=== PATIENT | male | born 1960 | race Caucasian/White ===

== ENCOUNTER 2017-06-10 07:56 | Day surgery (SDC) | payer BC ==
--- NOTE | 2017-06-09 13:38 | Pre-Procedure Note/Attestation ---
Pre-Procedure Note/Attestation Complete Prior to Procedure Planned Procedure: right Procedure Narrative: rt knee acl reconstruction, medial meniscectomy and chondroplasty Indications for Procedure Pre-Operative Diagnosis: rt knee acl tear, medial meniscus tear Attestation I attest that I discussed the nature of the procedure; its benefits; risks and complications; and alternatives (and the risks and benefits of such alternatives ), prior to the procedure, with the patient (or the patient's legal player services representative). I attest that, if there was a reasonable possibility of needing a blood transfusion, the patient (or the patient's legal player services representative) was given the [facility] standardized written summary, pursuant to the [place] Blood Safety Act ([place] Health and Safety Code # 1645, as amended). I attest that I re-evaluated the patient just prior to the surgery and that there has been no change in the patient's H&P, except as documented below: NONE NOLA ARCINIEGA Jun 09, 2017 13:38
[2017-06-10] VITALS (10 sets, daily range): BP systolic 90–136; BP diastolic 45–96
[~2017-06-10] VITALS: Ht 182.9 cm; Wt 79.4 kg
[~2017-06-10 07:56] MED LIST: Bupivacaine w/Epi 0.5% 30ml Vial INJ ONE; D5 1/2NS 1,000 ML IV SCH; HYDROmorphone 1mg/ml Carpuject SUBQ PRN; Lidocaine 1% Plain 30 ml INJ ONE; Norco 5mg/325mg tab ORAL PRN; Tylenol #3 tab (300mg/30mg) ORAL PRN; ceFAZolin 1gm in D5W 55ml IVP ONE; celeBREX 200mg Cap **SURGERY PATIENTS ONLY ORAL ONE; oxyCONTIN 20mg tab ORAL ONE
[2017-06-10] MEDS ORDERED: Ropivacaine 5mg/ml Vial 20ml INJ ONE (08:05)
[2017-06-10] MEDS ORDERED: IRBESARTAN PO (08:13)
[2017-06-10] MEDS ORDERED: ASPIR 8181 MG ORAL (08:13)
[2017-06-10] MEDS ORDERED: EPINEPHrine 1mg/1ml Amp ONE (08:25)
[2017-06-10] MEDS ORDERED: Midazolam 2mg/2ml Inj ONE (08:30)
[2017-06-10] MEDS ORDERED: NS Irrig 1000ml ONE (08:30)
[2017-06-10] MEDS ORDERED: Dexamethasone 4mg/ml vial ONE (08:30)
[2017-06-10] MEDS ORDERED: NS Irrig 4000ml IRRIG ONE (08:30)
[2017-06-10] MEDS ORDERED: Propofol 10mg/ml 20ml IV ONE (08:30)
[2017-06-10] MEDS ORDERED: fentaNYL 100 mcg/2 mL IV ONE (08:30)
[2017-06-10] MEDS ORDERED: Sterile Water Irrig 1000ml IRRIG ONE (08:30)
[2017-06-10] MEDS ORDERED: LR 1000ml ONE (08:30)
[2017-06-10] MEDS ORDERED: Lidocaine 1% MPF 10mg/ml 5ml ONE (08:30)
[2017-06-10] MEDS ORDERED: LR 1000ml 1,000 ML IVLG SCH (09:18)
--- NOTE | 2017-06-10 09:18 | Anethesia Preoperative Eval ---
Anesthesia Pre-op PMH/ROS General Date of Evaluation: Jun 10, 2017 Time of Evaluation: 08:31 Anesthesiologist: Atilio ASA Score: ASA 3 Mallampati Score Class I : Soft palate, uvula, fauces, pillars visible Class II: Soft palate, uvula, fauces visible Class III: Soft palate, base of uvula visible Class IV: Only hard plate visible Mallampati Classification: Class II Surgeon: Araceli Diagnosis: R Leg Pain Surgical Procedure: R ACL Repair Anesthesia History: none Family History: no anesthesia problems Allergies: Coded Allergies: No Known Allergies (Unverified , 06/05/17) Medications: see eMAR Past Medical History Cardiovascular: Reports: HTN Pulmonary: Reports: other - Bronchitis Hematology/Immune: Reports: other - HIV, Skin CA PSxH Narrative: R Knee Sx 84 Anesthesia Pre-op Phys. Exam Physician Exam Last Vital Signs Date Time Temp Pulse Resp B/P (MAP) Pulse Ox O2 Delivery O2 Flow Rate FiO2 06/10/17 08:27 97.8 70 18 131/96 99 Room Air Constitutional: NAD Neurologic: CN 2-12 intact Cardiovascular: RRR Respiratory: CTA Gastrointestinal: S/NT/ND Airway Exam Mallampati Score: Class II MO: full ROM: full Teeth: intact Anesthesia Pre-op A/P Risk Assessment & Plan Assessment: ASA 3 Plan: GA, R Femoral/Adductor Block, BIS Status Change Before Surgery: No Pre-Antibiotics Dru Grams Ancef IV Given Within 1 Hr of Incision: Yes Time Given: 08:46 Alexis Trimble MD Jun 10, 2017 09:18
[2017-06-10] MEDS ORDERED: Midazolam 2mg/2ml Inj IVP PRN (09:30)
[2017-06-10] MEDS ORDERED: Meperidine 25mg/0.5ml Inj (FOR RIGORS ONLY) IV PRN (09:30)
[2017-06-10] MEDS ORDERED: Ketorolac 60mg Inj IV PRN (09:30)
[2017-06-10] MEDS ORDERED: DiphenhydrAMINE 50mg/ml Inj IVP PRN (09:30)
[2017-06-10] MEDS ORDERED: Hydromorphone 0.5mg/0.5ml inj IVP PRN (09:30)
[2017-06-10] MEDS ORDERED: LORazepam Inj 2mg/ml 1ml IV PRN (09:30)
[2017-06-10] MEDS ORDERED: Atropine Inj 1mg/10ml Syr IV PRN (09:30)
[2017-06-10] MEDS ORDERED: Ketorolac 30mg Inj IV PRN (09:30)
[2017-06-10] MEDS ORDERED: Norco 5mg/325mg tab ORAL PRN (09:30)
[2017-06-10] MEDS ORDERED: Metoclopramide 10mg/2ml Inj IVP PRN (09:30)
[2017-06-10] MEDS ORDERED: fentaNYL 100 mcg/2 mL IV PRN (09:30)
[2017-06-10] MEDS ORDERED: oxyCODONE HCL/Acetaminophen 5/325mg ORAL PRN (09:30)
[2017-06-10] MEDS ORDERED: Norco 7.5mg/325mg tab ORAL PRN (09:30)
--- NOTE | 2017-06-10 09:30 | Immediate Post-Op Evaluation ---
Immediate Post-Op Evalulation Immediate Post-Op Evalulation Procedure: R ACL Repair Date of Evaluation: Jun 10, 2017 Time of Evaluation: 10:49 IV Fluids: 1000 LR Blood Products: 0 Estimated Blood Loss: 25 Urinary Output: 0 Blood Pressure Systolic: 90 Blood Pressure Diastolic: 49 Pulse Rate: 76 Respiratory Rate: 16 O2 Sat by Pulse Oximetry: 98 Temperature (Fahrenheit): 97.2 Pain Score (1-10): 3 Nausea: No Vomiting: No Complications 0 Patient Status: awake, reacts, patent, extubated, none Hydration Status: adequate Dru Grams Ancef IV Given Within 1 Hr of Incision: Yes Time Given: 08:46 Alexis Trimble MD Jun 10, 2017 09:30
--- NOTE | 2017-06-10 09:31 | 48 Hour Post Anesthesia Eval ---
Post Anesthesia Evaluation Procedure: R ACL Repair Date of Evaluation: Jun 10, 2017 Time of Evaluation: 10:49 Blood Pressure Systolic: 112 0: 78 Pulse Rate: 74 Respiratory Rate: 18 Temperature (Fahrenheit): 98.2 O2 Sat by Pulse Oximetry: 97 Airway: patent Nausea: No Vomiting: No Pain Intensity: 3 Hydration Status: adequate Cardiopulmonary Status: Stable Mental Status/LOC: patient returned to baseline Follow-up Care/Observations: 0 Post-Anesthesia Complications: 0 Follow-up care needed: ready to discharge Alexis Trimble MD Jun 10, 2017 09:31
--- NOTE | 2017-06-10 10:34 | Brief Operative Note ---
Immediate Post Operative Note Operative Note Chief Complaint: rt knee instability Pre-op Diagnosis: rt knee acl tear, medial and lateral meniscus tear Procedure: rt knee scope, scope, acl reconstruction, medial and lateral meniscectomy Post-op Diagnosis: same as pre-op Findings: consistent w/pre-op dx studies Surgeon: md deisy Manager Cafe: erickson swain Anesthesiologist: md linda Anesthesia: general Specimen: none Complications: none Condition: stable Fluids: NS Estimated Blood Loss: minimal Drains: none Implant(s) used?: Yes - biomet BRANDI SWAIN Jun 10, 2017 10:34
--- NOTE | 2017-06-10 23:00 | Operative Note - Dictated ---
DATE OF OPERATION: 06/10/2017 PREOPERATIVE DIAGNOSES: 1. Right knee posterior horn medial meniscus tear. 2. Right knee complete tear of the anterior cruciate ligament status post previous anterior cruciate ligament reconstruction. POSTOPERATIVE DIAGNOSES: 1. Right knee large posterior horn medical meniscus tearing in a non-repairable zone involving the posterior horn and body of the medial meniscus involving 40% of the posterior horn body of the medial meniscus. 2. Right knee posterior horn lateral meniscus tearing involving 20% of the posterior horn of the lateral meniscus. 3. Right knee complete torn previous anterior cruciate ligament graft. 4. 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 PROCEDURE: 1. Right knee arthroscopy and extensive intra-articular shaving. 2. Right knee partial lateral meniscectomy involving 20% lateral meniscus. 3. Right knee partial medial meniscectomy involving 40% of the posterior horn and body of the medial meniscus. 4. Right knee arthroscopic ACL reconstruction using tibialis anterior allograft, 10 mm graft, with ToggleLoc femoral fixation and AperFix tibial fixation. SURGEON: aLwrence Charles M.D. BUSINESS SOLUTIONS ANALYST: Anson Mcdonald [employer] Driver was present during the actual operative portion of the case and was important and essential part of the operation. During the operation, the senior executive assistant held and operated the arthroscopic camera for visualization, assisted by manipulating the leg to help with visualization, and helped with essential parts of the repair process as necessary such as operating surgical instruments under surgeon supervision, suture management, and wound closures. ANESTHESIOLOGIST: Alexis Trimble M.D. ANESTHESIA: General LMA anesthesia combined with femoral nerve block for postoperative pain management. TOURNIQUET TIME: 65 minutes. EBL: Minimal. COMPLICATIONS: None. SURGICAL INDICATION: Patient is a 56-year-old male who sustained the above injury to his knee. The patient was treated non-operative initially, but this did not alleviate the patients symptoms. Therefore, after discussing all non-surgical and surgical options, and discussing all foreseeable risk and benefits of surgery, the patient opted for surgical treatment as described above. PATIENT POSITIONING: Patient was brought to the operating room table and placed supine. All pressure points were well padded. General Anesthesia was induced and a well padded tourniquet was placed on the thigh. The lateral post was placed and positioned to allow for opening of the medial compartment of the knee without placing pressure over the fibular head. Patients entire leg was prepped and draped in the usual sterile fashion. Time out was performed and preop abx was given and after exsanguinating the lower extremity, the tourniquet was inflated to 275 mm of mercury. EXAMINATION OF THE KNEE UNDER ANESTHESIA: Before prepping and draping the knee and while the patient was relaxed under general anesthesia, the knee was examined for ROM, and anterior and posterior, medial and lateral, posterolateral, and posteromedial instability. Pivot shift testing was performed. There was no evidence of loss of motion, although there was marked instability on the anterior drawer testing and the pivot shifting. PORTAL PLACEMENT: The lateral portal was placed with the knee flexed to 90 degrees at the level of inferior border of the patella in line with the lateral border of the patella. A cm skin incision was made with an eleven blade, and using a blunt obturator, the capsule was gently penetrated. Sterile saline solution was then infused inside the knee with the aid of a pump set at 35 mm mercury pressure. Under direct visualization, placement of the medial portal was preliminary judged using a spinal needle, and it was subsequently established using the same technique as the lateral portal. Care was given not to injure the cutaneous branches of the medial Saphenous nerve or the subcutaneous veins. DIAGNOSTIC ARTHROSCOPY: The suprapatellar patellar pouch was visualized. There was central trochlear groove damage with grade 3 and grade 4 chondromalacia in the central groove. The patella was intact. The medial plica shelf and the corresponding medial femoral condyle articular cartilage were visualized. There was no significantly thickening of the medial plica shelf and there were no kissing ? lesion over the medial femoral condyle. The lateral gutter and the posterolateral corner of the knee were visualized. There were no loose bodies, and the popliteus tendon and other structures of the posterolateral corner of the knee were intact intra-articularly. At this point, the knee was placed in the figure of four position and the lateral compartment was entered. The lateral femoral condyle, lateral tibial plateau, and the anterior, body, and the posterior horn of the lateral meniscus were visualized and probed. The articular surfaces were intact and devoid of articular cartilage damage. There was a posterior horn lateral meniscus tear involving 20% lateral meniscus. This was near the meniscus root, although the meniscus root was intact. The knee was then placed at 90 degree and the ACL and PCL were visualized and probed. There was complete tear of the ACL graft that was placed in the past. This was completely torn. The PCL was completely intact on visualization and probing and it had excellent tension. The medial compartment was then entered and the medial femoral condyle, medial tibial plateau, and the anterior, body, and the posterior horn of the medial meniscus were visualized and probed. The articular surfaces were intact and devoid of articular cartilage damage. There was a large tear of the posterior horn of medial meniscus with displacement. This was involving the posterior horn and body. This was 40% of the posterior horn and body of the medial meniscus. There was no evidence of defect or loose fragments. The scope was then brought back to the patella femoral compartment. OPERATIVE ARTHROSCOPY: At this point, all loose debris and fragments were removed with the use of suction motorized shaver. Specific attention was given to assure all visible loose fragments were irrigated out of the knee joint with pump inflow and cannula outflow system. The frayed articular cartilage of the undersurface of the patella and the trochlear groove were debrided using a motorized shaver. Suction was used to pull in the loose fragments and flaps of the cartilage and to minimize damage to the intact and well attached portion of the cartilage. This allowed for a smooth surface for the articular cartilage gliding. At this point, attention was given to the lateral meniscus. Using combination of baskets and cy, the torn portion of the lateral meniscus was removed. Attention was given to remove all displaced and unstable portion of the lateral meniscus while maintaining as much of the functional portion of the meniscus as possible. Approximately, 20% of the posterior horn of the meniscus was removed in this fashion. The transition between the meniscectomy portion and intact portion of the meniscus was smoothed out with combination of small baskets and cy. Excellent transition zone was obtained in this fashion. At this point, attention was given to the medial meniscus. Using combination of baskets and cy, the torn portion of the medial meniscus was removed. Attention was given to remove all displaced and unstable portion of the medial meniscus while maintaining as much of the functional portion of the meniscus as possible. Approximately, 40% of the posterior horn and body of the medial meniscus was removed in this fashion. The transition between the meniscectomy portion and intact portion of the meniscus was smoothed out with combination of small baskets and cy. Excellent transition zone was obtained in this fashion. Pursuant to preoperative discussion with the patient, an allograft was used for ACL reconstruction. A 28 cm medium sized non-irradiated allograft was obtained from the tissue bank. The graft was defrosted in warm saline solution in its plastic wrapping. The graft was then cultured and subsequently placed in a triple antibiotic solution prior to handling. The graft was then trimmed to total length of 220 mm. The two ends of the graft were secured with #2 FiberWire sutures placed using modified Krackow technique up to 25 mm proximal to each end. All slack was removed from the stitched portion and the graft was placed on a graft tensioner wrapped in antibiotic soaked sponges in a safe place on the back table. Attention was then given to ACL reconstruction. The ACL remnant off of the tibial foot print and femoral notch was completely resected using a combination of suctioned electrocautery and cy. Care was given not to damage the transverse inter-meniscal ligament. Minimal notchplasty was performed using an aggressive 5.5 mm shaver just to be able to gain access and view the ACL attachment in the posterior aspect of the notch. The interns ridge was identified and debrided. The posterior aspect of the notch was then identified. This area was first debrided using a shaver and later cleaned off using a combination of curved curettes and cy. This area was probed to assure that the most posterior aspect of the notch is identified and there is no more bone posteriorly. Care was given not to damage the neurovascular bundle in the posterior compartment of the leg. At this point the scope was removed and using a #15 blade, a 2 cm incision was made on the medial face of the tibia approximately at the level of the tibial tubercle. Using a tibial tunnel guide, the position of entry of the guide wire into the knee joint was approximated. The guide was placed on the foot print of previous ACL stump at the medial half of the intertubercle groove to allow the pin to enter the knee joint in the tibial anatomical footprint of the ACL. A guide wire was first placed and the tibial hole was then drilled using a drill. The tibial tunnel was then dilated up to 2 mm using standard dilators at millimeter increments up to the final size of 10 mm. Care was given not to fracture any portion of the tunnel during this process. Once this was completed, a 10 mm. Femoral tunnel was drilled on the anatomical femoral attachment of the ACL, slightly laterally and inferiorly to the over the top position to allow for rotational stability. The femoral tunnel was drilled up to 35 mm deep. At this point, a Biomet ToggleLoc device was used for femoral fixation. A guide wire was passed thru the femoral tunnel and exited the lateral cortex of the femur and out of the soft tissue and grasp using a cocker. The 3.5 mm drill was used to drill the cortex and while the graft was loaded on the Toggle lock devise, it was then pulled up through the tibial tunnel into the joint and then into the femoral tunnel smoothly using the described technique and the metallic devise was flipped to allow security of the graft. The security of the graft was checked by pulling on the graft multiple times thru the femoral tunnel and assuring that the graft is firmly fixed. The graft was then tensioned by apply approximately 20 lb of traction and and cycling the knee 20 times through full flexion and extension to take out all of the looseness in the graft. At this point, the graft was stabilized in the tibial tunnel with a 10 mm AperFix device placed anterior to graft into the tibial tunnel. This was performed while keeping tension on the graft and applying a gentle posterior drawer to the knee. After completion of the fixation, anterior drawer and Aniyah testing were negative and pivot shift was not present. The scope was then placed back into the knee to visualize the graft. There was excellent position of the graft, and upon probing, the graft appeared to have excellent tension. Anterior drawer testing with scope in the knee revealed excellent stability. The knee was brought up to hyperextension and there was no evidence of graft impingement on the notch. CONDITION AT DISCHARGE FROM OPERATING ROOM: The knee was irrigated with copious amount of normal saline at the end of the procedure. The scope was removed and the water was drained. The skin edges were re-approximated and sterile dressing was applied. All lap count and instrument counts were correct. Patient tolerated the procedure well without complications and was taken to the recovery room in stable conditions. Lawrence Charles M.D. DR: Jaylene JOB#: [id number] CC:
== END 2017-06-10 12:40 | disposition home or self-care (01) ==
LOC: SUR 07:56
DX: S83.511A Sprain of anterior cruciate ligament of right knee, initial encounter (principal); X58.XXXA Exposure to other specified factors, initial encounter; Y93.89 Activity, other specified; Y92.89 Other specified places as the place of occurrence of the external cause; Y99.8 Other external cause status; M23.221 Derangement of posterior horn of medial meniscus due to old tear or injury, right knee; M23.251 Derangement of posterior horn of lateral meniscus due to old tear or injury, right knee; M94.261 Chondromalacia, right knee; I10 Essential (primary) hypertension; G47.00 Insomnia, unspecified; Z85.828 Personal history of other malignant neoplasm of skin
CPT/HCPCS: 29880; 29888; 97161; J0171; J0690; J1100; J2250; J2405; J2704; J2795; J3010; J7120; 94003; 94150